=== PATIENT | male | born 1980 | race Caucasian/White ===

== ENCOUNTER 2024-08-18 17:00 | Outpatient (RCR) | payer OTHER, MEDICAID, SELFPAY ==
--- NOTE | 2024-07-13 08:51 | HP.PTEVAL_ITS ---
Patient's Visit Information Visit Information Visit Information: NURYS GRANT is a 43 year old M referred to Physical Therapy by Dr. Gregorio Sampson MD with a diagnosis of sadcroiliitis. Date of Evaluation: 07/13/24 Physical Therapist: Amadou Ta, DPT, OCS, CSCS Visit Plan Frequency: 2x /Week Duration: 4-6 Weeks Plan: 2x/week for 4-6 weeks for aquatic therapy progressing to I or home program ... focus on core stability and general strength and lumbar ROM in all planes, alsoHS and quad/psoas stretch. Progress HEP. Subjective Subjective: LB issues and has been issues for years and years. Not sure why but 3 yrs ago had HNP and pinched nerve. Lifts a lot of stuff even know he knows he shouldn't. I am brutal on my body. LBP : constant. Legs can hurt at times, noticed when he rode a bike and got off adn both legs felt like jelly. No numb ness or tingling, maybe R leg when lying down. 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 Walking sometimes and planting hard can give him a sharp pain. Basic ADLs are I, needs to lift heavy or chop astudillo in spurts taking breaks when hurts too much. Riding tractor at home is a 20 minute limit or he will have a hard time getting back up. No regular exercises. Previous treatments: PT which only went a couple times, pain management in [place] but stopped going due to work. Hobbies: fixing things, work on car. Worse when he does them. Pain LBP: Pain Intensity (Out of 10): 6 Pain Intensity Range: 6 and 7 Objective Objective: Walks into PT I with stiffness but no antalgia, toe and heel walk easily. Transfers bed and chair I. LB AROM ext max limited, flexion max limited, SB mod limtied , no increase in pain with these but very stiff and hesitant due to intermittent sharp catches. LE AROM WFL, tightness obvious in HS and quads/psoas with a - 30 90/90 test. reflexes 2/3 patella adn achilles B Sensation LE WNL to gross light touch B LE. - SLR, - slump. core weakness with hip flexor testing is evident at hips, core strength flexion 3+ and ext 3+ LE strength without myotomal abnormalities: 4- hips abd and ext, 4 flexion, 4 knee flex/ext, 4 DF B. Tender PA pressure Lumbar and into sacral area but not in soft tissue. very stiff. Balance/Special Test Scores Oswestry Low Back Score: 19 Goals Goal 1:: LB AROM with mod limitations only and freely without hesitation. Goal Time Frame: 4-6 Weeks Goal 2:: I appropriate HEP or pool program to limit future problems Goal Time Frame: 4-6 Weeks Goal 3:: Pain in LB 2-3 /10 and intermittent Goal Time Frame: 4-6 Weeks Goal 4:: Pain and activity 50% better subjectively Goal Time Frame: 4-6 Weeks Goal 5:: pswestry score 5 or less Goal Time Frame: 4-6 Weeks Rehabilitation Potential Physical Therapy Diagnosis: loss fo ROM and flexibility and strength limtiing comfortable funciton. Rehabilitation Potential: Fair Anticipated Interventions Patient/Client Instruction: Educate patient on: Condition and Plan of Care For the Purpose of:: To decrease pain, To increase ROM, To improve nutrient delivery to tissue, To improve muscle performance and motor function, To increase tolerance to activity/condition/position, To improve ability of physical actions for home/community/work/leisure and To improve gait and locomotor functions Therapeutic Exercise to Include: Strength training, Postural training, Flexibilty training, In an aquatic setting, Passive ROM, Active ROM and Dynamic Lumbar Stabilization For the Purpose of:: To decrease pain, To increase ROM, To improve nutrient delivery to tissue, To improve muscle performance and motor function, To increase tolerance to activity/condition/position and To improve gait and locomotor functions Text: Thank you for the opportunity to evaluate your patient. For Medicare and Medicare HMO plans, please review the plan of care and approve it. It will need to be FAXED BACK to us at [phone] for Medicare purposes. For Medicare only, by signing this I certify the plan of care. Please let me know if there are questions or concerns regarding this plan of care. Physician Signature: Date:
--- NOTE | 2024-08-18 17:24 | HP.PTDCSUM ---
Discharge Summary D/C summary: It has been my pleasure to treat NURYS GRANT referred by Dr. Gregorio Sampson MD, with the diagnosis of sadcroiliitis for a total of 7 visit(s). Discharge Date: 08/18/24 Please see the following information for a summary of their discharge status. Subjective Subjective: Got a new job and hard to be consistent. 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 A lot easier ont the body. Saw [facility] and upped meds which helps more and bumped up gabapentin. Water is helping a little bit. Wants warmer water. [place] inconsistent due to job. Not sure he can be more consistent at this point with therapy, unable to make it in. HEP getting done. Pt unable to commit to consistency in therapy and wants d/c until can be more consistent adn he will ask to come back. Pain LBP: Pain Intensity (Out of 10): 3 Overall Improvement % Improvement: 50 Objective Objective/Function: LB ext min deficit and tight central LB mod deficits flexion with tightness SB are ok walking well without pain or antalgia today. Pt with poor commitment to program due to job demands at this time and unwilling to commit to further consistency at this time but may be appropriate to be sent back as his schedule allows. Goals Goal 1:: LB AROM with mod limitations only and freely without hesitation. Goal Progress: Progressing Goal 2:: I appropriate HEP or pool program to limit future problems Goal Progress: Progressing Goal 3:: Pain in LB 2-3 /10 and intermittent Goal Progress: Progressing Goal 4:: Pain and activity 50% better subjectively Goal Progress: Goal Met Goal 5:: pswestry score 5 or less Goal Progress: Progressing Plan Plan: d/c D/C Information Discharge Comments: Pt unable to commit to PT and ex due to new job. Doing better overall and wishes discharge until can be more consistent. d/c sentence: If there are questions or concerns regarding this patient's physical therapy, please feel free to call me at [phone]. Thank you for the referral of this patient. Sincerely, Amadou Ta, DPT, OCS, CSCS Balance/Gait/Functional tests Balance/Special Test Scores Oswestry Low Back Score: 15 Improvement % Improvement: 50
== END 2024-08-18 19:00 | disposition home or self-care (01) ==
LOC: PT 17:00
PROVIDERS: PCP Nurse Practitioner Primary Care; Referring Provider Anesthesiology; Visit Provider Anesthesiology
DX: M46.1 Sacroiliitis, not elsewhere classified (principal)
CPT/HCPCS: 97113; 97161; 97164

== ENCOUNTER → 2024-10-31 | Outpatient (CLI) | payer OTHER, MEDICAID, SELFPAY ==
--- NOTE | 2024-10-31 08:02 | MRI_ITS ---
PROCEDURE: SPINE LUMBAR (ROUTINE) 10/31/2024 REASON FOR EXAM: LUMBAR SPLONDYLOSIS TECHNIQUE: Multiplanar and multisequence images were obtained without IV contrast administration. COMPARISON: none FINDINGS: Straightened lumbar lordotic curve denoting myospasm. The examined vertebrae bodies and posterior neural arches show no fracture or dislocation with preserve vertebral bodies height. Multilevel tiny marginal lipping and subchondral degenerative marrow signal/Modio II of the examined vertebral end plates. Variable degrees of reduced height and bright T2 WI signal of the intervertebral discs denoting their desiccation. Reduced bright T2 WI signal of L3-L4, L4-L5 and L5-S1 discs denoting their desiccation T12-L1: There is no focal disc pathology, central canal stenosis or neural foraminal stenosis. L1-L2: There is no focal disc pathology, central canal stenosis or neural foraminal stenosis. L2-L3: There is no focal disc pathology, central canal stenosis or neural foraminal stenosis. L3-L4: a 1 mm diffuse disc bulge indenting the theca and encroaching upon both neural exit foramina inducing mild exiting nerve roots compression. L4-L5: a 2.9 mm diffuse disc bulge with right foraminal disc protrusion indenting the theca and encroaching upon both neural exit foramina inducing moderate right and mild left exiting nerve roots compression. L5-S1: a 2.5 mm diffuse disc bulge with left foraminal disc protrusion indenting the theca and encroaching upon both neural exit foramina inducing mild right and moderate left exiting nerve roots compression. The lower thoracic spinal cord, conus medullaris, and cauda equina nerve roots are unremarkable. No marrow infiltrative lesions. Paravertebral soft tissue is unremarkable. No developmental canal stenosis. MRI/Spine Lumbar (Routine) IMPRESSION: Straightened lumbar lordotic curve denoting myospasm. No vertebral fracture or dislocation. L3-L4: a 1 mm diffuse disc bulge inducing mild exiting nerve roots compression. L4-L5: a 2.9 mm diffuse disc bulge with right foraminal disc protrusion inducin g moderate right and mild left exiting nerve roots compression. L5-S1: a 2.5 mm diffuse disc bulge with left foraminal disc protrusion inducing mild right and moderate left exiting nerve roots compression. Reading Location: [id number]
== END | disposition home or self-care (01) ==
LOC: MRI 07:57
PROVIDERS: PCP Nurse Practitioner Primary Care; Referring Provider Anesthesiology; Visit Provider Anesthesiology
DX: M47.816 Spondylosis without myelopathy or radiculopathy, lumbar region (principal)
CPT/HCPCS: 72148